=== PATIENT | male | born 1990 | race Hispanic/Latino ===

== ENCOUNTER 2023-04-30 07:06 | Observation (INO) | payer OTHER ==
[2023-04-30] MEDS ORDERED: fentaNYL 50 mcg/mL 1 mL Vial ONE (08:39)
[2023-04-30] MEDS ORDERED: Midazolam HCl 2 mg/2 ml Vial ONE (08:39)
[2023-04-30] MEDS ORDERED: EPINEPHrine 1 MG/ML VIAL ONE (08:39)
[2023-04-30] MEDS ORDERED: Bupivacaine PF 0.5% 30 ML VIAL ONE (08:39)
[2023-04-30] MEDS ORDERED: fentaNYL 50 mcg/mL 1 mL Vial SLOW IVP PRN (09:14)
[2023-04-30] MEDS ORDERED: Zolpidem Tartrate 5 MG TAB PO PRN (09:15)
[2023-04-30] MEDS ORDERED: Ondansetron PF 4 MG/2 ML Vial IVP PRN (09:15)
[2023-04-30] MEDS ORDERED: HYDROcodone/Acetaminophen 10/325 mg Tablet PO PRN ×2 (09:15)
[2023-04-30] MEDS ORDERED: traMADol HCl 50 MG TAB PO PRN ×2 (09:15)
[2023-04-30] MEDS ORDERED: Promethazine HCl 25 MG/ML VIAL IM PRN (09:15)
[2023-04-30] MEDS ORDERED: Ropivacaine 0.2% 550 ML 550 ML NERVE BLCK SCH (09:15)
[2023-04-30] MEDS ORDERED: PROPOFOL 40 ML ONE (09:19)
[2023-04-30] MEDS ORDERED: Ondansetron PF 4 MG/2 ML Vial ONE ×2 (09:19→09:53)
[2023-04-30] MEDS ORDERED: CEFAZOLIN 2 GM VIAL ONE (09:34)
[2023-04-30] MEDS ORDERED: Sodium Chloride 0.9% 100 ML ONE (09:34)
[2023-04-30 09:39] LABS: Hematocrit 42.5 % (42.0-52.0); Hemoglobin 15.6 g/dL (14.0-18.0); Mean Corpuscular HGB CONC 36.7 g/dL (32.0-36.0); Mean Corpuscular Hemoglobin 30.8 pg (27.0-31.0); Mean Corpuscular Volume 83.8 fl (78.0-98.0); Mean Platelet Volume 10.4 fL (7.4-10.4); Platelet Count 266 10x3/uL (130-400); RBC Distribution Width 12.5 % (11.5-14.5); Red Blood Cell (RBC) Count 5.07 mill/uL (4.70-6.10); White Blood Cell (WBC) Count 6.6 10x3/uL (4.8-10.8)
[2023-04-30] MEDS ORDERED: fentaNYL PF 100 MCG/2 ML SYRINGE ONE (10:14)
[2023-04-30] MEDS ORDERED: Bisacodyl 10 MG SUPP PR PRN (12:06)
[2023-04-30] MEDS ORDERED: Milk Of Magnesia 30 ML UDCUP PO PRN (12:06)
[2023-04-30] MEDS ORDERED: Methocarbamol 500 MG TAB PO PRN (12:06)
[2023-04-30] MEDS ORDERED: Acetaminophen 500 MG TAB PO PRN (12:06)
[2023-04-30] MEDS ORDERED: diphenhydrAMINE 50 MG CAP PO PRN (12:06)
[2023-04-30] MEDS: Ketorolac Tromethamine 30 MG (1 mL) VIAL IVP SCH (21:02)
[2023-04-30] MEDS: Dextrose 5 %-0.45 % NaCl 1,000 ML IV SCH (21:03)
[2023-04-30] MEDS: Famotidine 20 MG TAB PO SCH (21:17)
[2023-04-30] MEDS: CEFAZOLIN 2 GM in Sodium Chloride 0.9% 100 ML IVPB SCH (21:18)
[2023-04-30] MEDS: Vancomycin (BATCH) 1.5 GM in Premix 1 BAG IVPB SCH (23:33)
[2023-05-01 07:14] VITALS: BMI 27.0
[2023-05-01 07:48] VITALS: BP 101/62; TEMP 98.3
[2023-05-01] MEDS: FLU VACC QS2023-24(6MOS UP)/PF 60 MCG/0.5 ML SYRINGE IM ONE (10:41)
== END 2023-05-01 13:00 | disposition home or self-care (01) ==
LOC: SDC 07:06 → T4-B 12:06
PROVIDERS: ADMIT Orthopaedic Surgery; ATTEND Orthopaedic Surgery
PROC: 0MRP4JZ Replacement of Left Knee Bursa and Ligament with Synthetic Substitute, Percutaneous Endoscopic Approach (ICD-10-PCS; principal; 2023-04-30)
PROC: 0SBD4ZZ Excision of Left Knee Joint, Percutaneous Endoscopic Approach (ICD-10-PCS; 2023-04-30)
PROC: 0SBD4ZZ Excision of Left Knee Joint, Percutaneous Endoscopic Approach (ICD-10-PCS; 2023-04-30)
DX: S83.282A Other tear of lateral meniscus, current injury, left knee, initial encounter (principal); S83.242A Other tear of medial meniscus, current injury, left knee, initial encounter; S83.512A Sprain of anterior cruciate ligament of left knee, initial encounter; W10.8XXA Fall (on) (from) other stairs and steps, initial encounter
CPT/HCPCS: 85027; A4306; C1713; C1889; J0171; J0665; J1885; J2250; J2405; J2704; J2795; J3010; J3370; J3490; J7042